=== PATIENT | female | born 1975 | race Caucasian/White ===

== ENCOUNTER → 2023-07-19 07:40 | Outpatient (REF) | payer BC, SELFPAY | LOC: RAD 07:40 | PROVIDERS: ATTENDING PHYSICIAN Specialist; FAMILY PHYSICIAN Family Medicine | DX: K80.20 Calculus of gallbladder without cholecystitis without obstruction (principal); Q44.6 Cystic disease of liver | CPT/HCPCS: 78226; A9537 ==

== ENCOUNTER 2024-10-04 10:56 | Emergency (ER) | payer BC, SELFPAY ==
[2024-10-04] VITALS (10 sets, daily range): BP systolic 97–128; BP diastolic 69–93; PULSE 71–80; BMI 29.0
[2024-10-04 11:46] LABS: % Basophils 1.1 % (0-2); % Eosinophils 0.9 % (0-6); % Immature Granulocytes 0.2 % (0-0.5); % Lymphocytes 32.9 % (20.5-51.1); % Neutrophils 58.9 % (42.2-75.2); Absolute Basophils 0.1 10^3/uL (0-0.2); Absolute Eosinophils 0.1 10^3/uL (0-0.7); Absolute Lymphocytes 1.8 10^3/uL (1.2-3.4); Absolute Monocytes 0.3 10^3/uL (0.1-0.6); Absolute Neutrophils 3.3 10^3/uL (1.4-6.5); Hematocrit 43.8 % (37.0-47.0); Hemoglobin 15.1 g/dL (12.0-16.0); Mean Corp Hgb Conc. 34.5 g/dL (33.0-37.0); Mean Corpuscular Hgb 30.9 pg (27.0-31.0); Mean Corpuscular Volume 89.8 fL (81.0-99.0); Mean Platelet Volume 10.3 fL (7.4-10.4); Nucleated Red Blood Cells % 0 %; Platelet Count 166 10^3/uL (130-400); Red Blood Cell Count 4.88 10^6/uL (4.20-5.40); White Blood Cell Count 5.5 10^3/uL (4.8-10.8)
[2024-10-04 12:16] LABS: ALT (SGPT) 16 U/L (0-35); AST (SGOT) 25 U/L (14-36); Albumin 4.8 g/dl (3.5-5.0); Alkaline Phosphatase 38 U/L (38-126); Blood Urea Nitrogen 17 mg/dl (7-17); Calcium 9.5 mg/dl (8.4-10.2); Carbon Dioxide 24 mmol/L (22-30); Chloride 111 mmol/L (98-107); Estimated Creatinine Clearance 104 ml/min; Glucose 80 mg/dl (70-99); Potassium 4.6 mmol/L (3.5-5.1); Sodium 142 mmol/L (135-145); Total Bilirubin 0.6 mg/dl (0.2-1.3); Total Protein 7.6 g/dl (6.3-8.2); eGFR > 60.00
[2024-10-04] MEDS: ANTIVERT 25 MG PO (12:32)
[2024-10-04] MEDS: NSS 1000 IV (12:33)
[2024-10-04 12:46] LABS: HCG, Serum Qualitative Screen Negative
[2024-10-04 13:14] LABS: COVID-19 Antigen Negative (Negative)
[2024-10-04 13:30] LABS: Monotest Negative (Negative)
[2024-10-04] MEDS: TORADOL 15 MG IV (13:34)
--- NOTE | 2024-10-04 13:36 | ED.GENMED ---
History of Present Illness
General
Chief Complaint: Dizziness
Source: patient
Exam Limitations: none
Time Seen by Provider: 10/04/24 11:54
Nursing documentation reviewed up to this point in time: agreed with
History of Present Illness
History of Present Illness:
Patient is a 48-year-old female with history of migraines who present to the emergency department for evaluation of dizziness beginning abruptly yesterday while standing and talking. The dizziness is described as a lightheaded feeling, without a
spinning sensation like vertigo. Efforts to alleviate symptoms, including eating, hydrating, and taking meclizine 25 mg and sumatriptan, were ineffective.
Symptoms clearly worsened with movement of head or lying down; remaining upright provided some relief. This morning, she attempted to work but had to call out sick due to persistent dizziness upon head movement and felt nauseous. She reports
headache localized to the forehead and neck, alongside chronic neck and shoulder pain. The headache resembles her typical headaches, usually relieved by rest and medication, but dizziness persisted this time.
No vision changes, hearing changes, fever, or recent viral symptoms are noted.
Recent related symptoms include 2-month long intermittent waking-related tingling in both arms, which she is awaiting cervical spine MRI for evaluation, suspecting no significant findings.
Past History
Past History
ED Past Surgical History: and Other
Social History
Tobacco: Other
Drug: None
Personal:
Living: with family
Employment: Employed
Review of Systems
Review of Systems
Allergies reviewed?: Yes
All Other Systems: ROS reviewed and negative except as documented in HPI and ROS
Phy Exam
Physical Exam
Physical Exam:
Vitals: Patient's vital signs are stable. Afebrile
General: Patient is well appearing, no acute distress
Skin: Warm and dry, no rashes or lesions
Head: Normocephalic, atraumatic
Eyes: Sclera nonicteric. Pupils equal round and reactive to light bilaterally. EOMs intact. No nystagmus.
Throat: Protecting airway
Neck: Normal ROM, no cervical spine tenderness, no meningismus
Cardiac: Regular rate and rhythm, no murmurs.
Pulm: Normal respiratory effort, no wheezes, rales, rhonchi heard on exam
.
Abdomen: Abdomen soft and nontender
Extremities: No evidence of cyanosis or edema. Palpable DP pulses bilaterally. Strength equal bilaterally
Neuro: AAOx3. CN II-XII grossly intact on examination. Normal yadayz-ax-eusu. Fluid speech. No facial droop or asymmetry. Steady gait. No focal neurologic deficits.
Psychiatric: Normal affect.
Course
Orders/Labs/Results
Orders:
Orders
10/04/24 11:30
CMP [Comprehensive Metabolic Panel] Urgent
Complete Blood Count/With Diff Urgent
HCG, Serum Qualitative Screen Urgent
Comment: ADD
Monotest Urgent
Comment: ADD
10/04/24 11:33
EKG [Electrocardiogram (*1)] Urgent
Reason for Study: Vertigo / Dizzy
EKG- Treatment ONCE
10/04/24 12:16
Add On- LAB Urgent
Tests Added?: serum hcg, monospot
Orthostatic VS- Treatment ONCE
0.9% Sodium Chloride 1000 ml [Nss] 1,000 ml IV BOLUS
Meclizine [Antivert] 25 mg PO NOW STA
10/04/24 12:17
CT Head W/o Iv Contrast Urgent
Comment:
Reason For Exam: Dizziness, b/l arm tingling
10/04/24 12:41
COVID-19 Antigen Urgent
Source: Nasal Swab
Influenza A+B Rapid Molecular Urgent
ANAHY Source: Nasal Swab
Specimen Description:
10/04/24 13:27
Ketorolac [Toradol] 15 mg IV NOW STA
PT Consult [Pt Eval And Treat] Urgent
Treatment: vestibular therapy
Activity Level: As Tolerated
10/04/24 14:53
Diphenhydramine [Benadryl] 25 mg IV NOW STA
Metoclopramide [Reglan] 10 mg IV NOW STA
Abnormal Lab Results
10/04/24
11:30
Chloride 111 H mmol/L
(98-107)
10/04/24 11:30
10/04/24 11:30
Vital Signs
Initial and Last Documented VS:
Initial Vital Signs
Temp Pulse Resp BP Pulse Ox
98.2 F 84 20 118/84 99
10/04/24 11:08 10/04/24 11:08 10/04/24 11:08 10/04/24 11:08 10/04/24 11:08
Last Documented Vital Signs
Temp Pulse Resp BP Pulse Ox
98.2 F 81 22 104/78 100
10/04/24 11:08 10/04/24 16:15 10/04/24 16:15 10/04/24 16:40 10/04/24 16:27
MDM/Problems Addressed
Differential Diagnosis Includes:
Not limited to: BPPV, labyrinth-itis, vestibular neuritis, vestibular migraine, orthostatic hypotension, acute dehydration, viral illness, cervical spine pathology, etc.
MDM/Problems Addressed:
A 48-year-old female presented with dizziness and mild headaches since the previous day. Her symptoms were exacerbated by head movements. No history of ataxia, diplopia, dysarthria, or dysmetria was noted. No history of recent trauma. Patient has
stable vital signs. Physical exam as above. Symptoms seem most consistent with likely peripheral vertigo. ED plan check labs, viral studies, EKG, orthostatic vital signs. Will treat with meclizine and IV fluids. Given new onset as well as
associated headache and intermittent arm tingling�will obtain CT head.
Update: Labs reviewed. CBC and Chemistry without clinically significant abnormalities. Viral studies negative. EKG reveals normal sinus rhythm without acute ischemic changes. Head CT without acute intracranial abnormalities. Patient reports
possibly mild improvement in symptoms following meclizine however still has headache. Will treat with migraine cocktail. Plan for PT evaluation.
Update: PT down to evaluate patient at bedside who feels most consistent peripheral vertigo as they were able to reproduce symptoms bilaterally. Headache improved following migraine cocktail. She still has some mild vertiginous symptoms�much
improved from arrival to emergency department. She does not want any Valium or additional dose of meclizine here. Presentation was consistent with peripheral vertigo today�very low suspicion for central cause. Offered admission for continued
management although patient feels she can handle the symptoms at home. She was able to ambulate around department with steady gait and minimal symptoms. Will send prescription for meclizine and order form given to patient for outpatient vestibular
therapy. Strict return precautions discussed. Patient comfortable with plan.
Chronic conditions affecting care:
Migraines
Acute Exacerbation and/or Progression of Chronic Illness:
N/A
*Radiology
Radiology exam reviewed: preliminary read by ED provider (CT head reviewed by me-no acute abnormalities) and radiology read reviewed
*Pulse Oximetry
SaO2: 100
Oxygen Mode of Delivery: Room air
Patient hypoxic: no
*EKG
Interpreted by ED Provider?: Yes
EKG Intrepretation Date: 10/04/24
Interpretation: normal
Comparison EKG: no comparison EKG present
Heart Rate: 77
Rate: normal
Rhythm: sinus
[place]: normal axis
Interval: normal interval
QRS Pattern: normal QRS
Ischemia: no ischemia
*Braze Operator Interpretation
Rate: normal
Interpretation: normal
Heart Rate: 80
Rhythm: sinus
*Critical Care Note
Total Time (30-74mins, 75-104mins- exclusive of procedures): Not Applicable
Patient Management
Escalation/DeEscalation of care consider admission/obs:
Considered/offered admission for persistent dizziness however patient declines and feels comfortable monitoring symptoms at home and treating symptomatically
ED Attending Note
-
Portions of this chart may have been created with voice recognition software.� Occasional wrong word or��sound alike� substitutions may have occurred due to the inherent limitations of voice recognition software.
Discharge Plan
Departure
Patient Disposition: Home (Routine Discharge)
Date of Disposition: 10/04/24
Time of Disposition: 16:00
Patient with high blood pressure during this ER visit?: No
Condition: Good
Covid-19: Negative COVID-19
Discharge Problem:
Dizziness, Headache
Instructions: Vertigo (a Type of Dizziness) (DC), Headache in adults - ED discharge instructions
Prescriptions:
New
meclizine 25 mg tablet
25 mg PO TID PRN (Reason: dizziness) Qty: 10 0RF
Referrals:
Ophelia Galeano DO [Family Provider, [facility]] - Follow up in 2-3 days
Activity Restrictions/Additional Instructions:
RETURN TO THE EMERGENCY DEPARTMENT ANY SEVERE HEADACHE, NECK PAIN, INTRACTABLE DIZZINESS, FEVERS, CHANGES IN VISION OR OTHER NEUROLOGIC SYMPTOMS, VOMITING, WORSENING IN CURRENT SYMPTOMS, OR ANY OTHER CONCERNS
- As discussed�your lab work and head CT showed no acute abnormalities. Your viral testing was negative. You were given IV fluids, oral meclizine, IV Toradol, Benadryl, Reglan while in the emergency department.
- I suspect you likely are experiencing some degree of peripheral vertigo contributing to your symptoms. It is possible that you have an underlying viral illness, as well.
- It is important stay very well-hydrated. You can take meclizine as needed for persistent dizziness. You should follow-up for outpatient vestibular therapy. The order form has been sent home with you.
-Please follow-up with your primary care in a few days to ensure that symptoms are improving/for further evaluation. If symptoms persist/worsen you may need MRI imaging
Monitor your symptoms closely and return to the emergency department with any acute worsening/new symptoms or any other concerns
Interventions
Interventions:
*Risk Screen - Suicide Last Done: 10/04/24 11:08
*General Assessment Last Done: 10/04/24 11:21
*Neglect/Abuse Screening Last Done: 10/04/24 11:08
*ED- Fall Risk Assessment Last Done: 10/04/24 11:21
*ED COVID-19 Vaccine History Last Done: 10/04/24 11:21
*Nursing Disposition Last Done: 10/04/24 16:49
ED- Neurological Assessment Last Done: 10/04/24 11:21
ED- Cardiac Assessment Last Done: 10/04/24 16:49
ED Swallowing Screen Last Done: 10/04/24 11:21
Discharge Date and Time
Discharge Date/Time: 10/04/24 16:52
Print Language: EAST [place]
[2024-10-04] MEDS: REGLAN 10 MG IV (14:56)
[2024-10-04] MEDS: BENADRYL 25 MG IV (14:57)
== END 2024-10-04 16:52 | disposition home or self-care (01) ==
LOC: EMR 10:56
PROVIDERS: Emergency Medicine; Physician Assistant; EMERGENCY PHYSICIAN Emergency Medicine; FAMILY PHYSICIAN Family Medicine
DX: R42 Dizziness and giddiness (principal); R51.9 Headache, unspecified; Z11.52 Encounter for screening for COVID-19
CPT/HCPCS: 99285; 96374; 96375 ×2; 96361; 70450; 80053; 84703; 85025; 86308; 87502; 87811; 93005

== ENCOUNTER 2025-03-13 02:54 | Emergency (ER) | payer BC, SELFPAY ==
[2025-03-13 03:14] VITALS: BP 114/78
[2025-03-13 03:40] VITALS: BMI 28.3
[2025-03-13 03:53] VITALS: BP 113/83
[2025-03-13 04:07] LABS: Hematocrit 40.9 % (37.0-47.0); Hemoglobin 14.3 g/dL (12.0-16.0); Mean Corp Hgb Conc. 35.0 g/dL (33.0-37.0); Mean Corpuscular Volume 88.7 fL (81.0-99.0); Nucleated Red Blood Cells % 0 %; Platelet Count 176 10^3/uL (130-400); Red Cell Dist. Width 12.0 % (11.5-14.5)
[2025-03-13] MEDS: ZOFRAN 4 MG IV (04:09)
[2025-03-13] MEDS: NSS 1000 IV (04:12)
[2025-03-13 04:16] LABS: HCG, Serum Qualitative Screen Negative
[2025-03-13 04:19] LABS: Urine Character Clear (Clear)
[2025-03-13] MEDS: DILAUDID 0.25 MG IV (04:24)
[2025-03-13 04:25] LABS: ALT (SGPT) 20 U/L (0-35); AST (SGOT) 26 U/L (14-36); Albumin 4.7 g/dl (3.5-5.0); Alkaline Phosphatase 43 U/L (38-126); Blood Urea Nitrogen 14 mg/dl (7-17); Calcium 9.6 mg/dl (8.4-10.2); Carbon Dioxide 23 mmol/L (22-30); Chloride 109 mmol/L (98-107); Estimated Creatinine Clearance 102 ml/min; Glucose 83 mg/dl (70-99); Lipase 169 U/L (23-300); Potassium 3.9 mmol/L (3.5-5.1); Sodium 139 mmol/L (135-145); Total Protein 7.3 g/dl (6.3-8.2); eGFR > 60.00
--- NOTE | 2025-03-13 05:46 | ED.GENMED ---
History of Present Illness
<Jerri Moctezuma PA-C - Last Filed: 03/14/25 07:06>
General
Chief Complaint: Flank Pain
Time Seen by Provider: 03/13/25 03:41
History of Present Illness
History of Present Illness:
see MDM
Past History
<Jerri Moctezuma PA-C - Last Filed: 03/14/25 07:06>
Past History
ED Past Surgical History: and Other
Social History
Tobacco: Other
Drug: None
Personal:
Living: with family
Employment: Employed
Phy Exam
<REYES Sutton Last Filed: 03/14/25 07:06>
Physical Exam
Physical Exam:
see MDM
Course
<Jerri Moctezuma PA-C - Last Filed: 03/14/25 07:06>
Orders/Labs/Results
Orders:
Orders
03/13/25 03:22
Test Result ONCE
03/13/25 03:52
Complete Blood Count/With Diff Urgent
Comprehensive Metabolic Panel Urgent
HCG, Serum Qualitative Screen Urgent
Lipase Urgent
03/13/25 03:59
0.9% Sodium Chloride 1000 ml [Nss] 1,000 ml IV BOLUS
HYDROmorphone [Dilaudid] 0.25 mg IV NOW STA
Ondansetron Injectable [Zofran] 4 mg IV NOW STA
03/13/25 04:13
Urinalysis Reflex To Culture Urgent
Date Specimen was Collected: 03/13/25
Time Specimen was Collected: 03:22
03/13/25 04:17
US Abdomen Complete/Upper Urgent
Comment:
Reason For Exam: RUQ PAIN, h/o PCLD, gallstones
03/13/25 05:45
CT Abd/Pel (IV only)-DH only Urgent
Comment:
Reason For Exam: RUQ pain, severe liver dz;
Ketorolac [Toradol] 30 mg IV NOW STA
Abnormal Lab Results
03/13/25
03:52
Chloride 109 H mmol/L
(98-107)
03/13/25 03:52
03/13/25 03:52
Vital Signs
Initial and Last Documented VS:
Initial Vital Signs
Temp Pulse Resp BP Pulse Ox
36.4 C 79 16 114/78 98
03/13/25 03:14 03/13/25 03:14 03/13/25 03:14 03/13/25 03:14 03/13/25 03:14
Last Documented Vital Signs
Temp Pulse Resp BP Pulse Ox
36.4 C 74 16 94/78 98
03/13/25 03:14 03/13/25 07:41 03/13/25 07:41 03/13/25 07:32 03/13/25 07:32
<Darin Henderson, DO - Last Filed: 03/13/25 07:34>
Orders/Labs/Results
Orders:
Orders
03/13/25 03:22
Test Result ONCE
03/13/25 03:52
Complete Blood Count/With Diff Urgent
Comprehensive Metabolic Panel Urgent
HCG, Serum Qualitative Screen Urgent
Lipase Urgent
03/13/25 03:59
0.9% Sodium Chloride 1000 ml [Nss] 1,000 ml IV BOLUS
HYDROmorphone [Dilaudid] 0.25 mg IV NOW STA
Ondansetron Injectable [Zofran] 4 mg IV NOW STA
03/13/25 04:13
Urinalysis Reflex To Culture Urgent
Date Specimen was Collected: 03/13/25
Time Specimen was Collected: 03:22
03/13/25 04:17
US Abdomen Complete/Upper Urgent
Comment:
Reason For Exam: RUQ PAIN, h/o PCLD, gallstones
03/13/25 05:45
CT Abd/Pel (IV only)-DH only Urgent
Comment:
Reason For Exam: RUQ pain, severe liver dz;
Ketorolac [Toradol] 30 mg IV NOW STA
Abnormal Lab Results
03/13/25
03:52
Chloride 109 H mmol/L
(98-107)
03/13/25 03:52
03/13/25 03:52
Vital Signs
Initial and Last Documented VS:
Initial Vital Signs
Temp Pulse Resp BP Pulse Ox
36.4 C 79 16 114/78 98
03/13/25 03:14 03/13/25 03:14 03/13/25 03:14 03/13/25 03:14 03/13/25 03:14
Last Documented Vital Signs
Temp Pulse Resp BP Pulse Ox
36.4 C 74 16 94/78 98
03/13/25 03:14 03/13/25 07:41 03/13/25 07:41 03/13/25 07:32 03/13/25 07:32
<Jerri Moctezuma PA-C - Last Filed: 03/14/25 07:06>
MDM/Problems Addressed
Differential Diagnosis Includes:
see MDM
MDM/Problems Addressed:
Note:
CHIEF COMPLAINT(S)
Lower abdominal pain.
HISTORY OF PRESENT ILLNESS
The patient is a 49-year-old female with a history of gallstones presenting with severe upper abdominal pain that began last night. She described the pain as an 8 out of 10 on the pain scale when she is at rest, worsening with movement, and reported
that it is slightly relieved by standing. She noted no history of kidney stones but has had gallstones diagnosed approximately two years ago, with a past incident of gallstone-related symptoms requiring emergency evaluation.
The patient experienced similar episodes leading to two incidents of vomiting. The location of the current pain differs from previous episodes of gallbladder-related abdominal pain and is lower than typical gallbladder pain.
She takes Ursodiol for gallstones and strives for dietary modifications to manage her condition. Recent imaging, typically an annual MRI, has shown stable liver function with gallstones present but no worsening. She mentioned a prior ruptured cyst
and her liver surgeon has indicated potential complexity if surgical intervention is needed due to anatomical positioning of the gallbladder and liver.
The patient reported no cough, nausea, or recent travel over six hours. She experienced vertigo and migraine episodes after a recent COVID vaccine but attributes those symptoms to her history of migraines.
PAST MEDICAL AND SURIGICAL HISTORY
- Gallstones
- Two liver surgeries
- Bilateral mastectomy with reconstruction
- Oophorectomy and caesarean section
- Corneal surgery
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
The patient reports significant sensitivity to certain narcotic pain medications, which cause severe nausea and vomiting unless accompanied by a Scopolamine patch.
MEDICATIONS
- Ursodiol for gallstones
PHYSICAL EXAM
- Nursing notes reviewed and vital signs reviewed.
GENERAL: Alert , in no apparent distress uncomfortable with movement
EYE: pupils equal and reactive
NECK: Supple
ENT: o/p clr, mmm.
CARDIAC: Regular rate and rhythm .
LUNGS: Clear breath sounds bilaterally, no acute respiratory distress, no wheezes/rales/rhonchi, pain with deep breathing
ABDOMEN: Soft, moderate right upper quadrant tenderness, positive Gil sign, no r/g, no cvat, normal bowel sounds
NEUROLOGICAL: Alert and oriented, no focal neuro deficits
SKIN: Warm and dry, skin intact.
MUSCULOSKELETAL: No edema, well perfused. neg guzman's sign
PSYCH: Normal and appropriate interaction.
PROBLEM LIST
Acute problems: Severe lower abdominal pain, likely related to gallstones or other intra-abdominal pathology.
PLAN
- The plan includes the administration of intravenous pain medications, specifically Dilaudid at a low dose with Zofran to prevent nausea.
- Initiate workup including bloodwork and urine tests to explore potential causes of pain.
- Perform diagnostic ultrasound and possibly CT scan to identify gallstones, kidney stones, or other abdominal issues.
- Patient to refrain from ingesting food or drink until the testing identifies the appropriate course of management.
DIFFERENTIAL DIAGNOSIS
The Differential Diagnosis includes, in no particular order and is not limited to:
- Gallstones
- Kidney stones
- Liver disease or cysts
- Peptic ulcer disease
- Pancreatitis
- Appendicitis
- Ovarian cyst rupture
- Gastroenteritis
- Urinary tract infection
- Biliary colic
CARE-UPDATE
03/13/25 - 05:44
Patient reports continued abdominal pain. Ultrasound reveals severe polycystic liver disease and probable gallstones, but no cholecystitis or kidney issues. Labs including liver markers, lipase, and kidney function are normal. Discussion with
attending suggests stopping further testing if the patient feels better, as no acute cholecystitis is indicated. CT scan considered if pain persists to rule out other causes. Patient encouraged to eat and assess pain response to determine if
gallstones are symptomatic. If gallbladder surgery becomes necessary, transfer to [place] is recommended. Motrin taken at 2 a.m., with additional pain management planned using tylenol, as it may help with pain without causing drowsiness.
signed out to dr. henderson pending CT.
<Jerri Moctezuma PA-C - Last Filed: 03/14/25 07:06>
*Pulse Oximetry
SaO2: 100
Oxygen Mode of Delivery: Room air
Patient hypoxic: no (98)
*Critical Care Note
Total Time (30-74mins, 75-104mins- exclusive of procedures): Not Applicable
ED Attending Note
<Jerri Moctezuma PA-C - Last Filed: 03/14/25 07:06>
-
Portions of this chart may have been created with voice recognition software.� Occasional wrong word or��sound alike� substitutions may have occurred due to the inherent limitations of voice recognition software.
<Darin Henderson, DO - Last Filed: 03/13/25 07:34>
ED Attending Note
Patient seen and examined by attending physician: Yes
I performed the substantive portion of visit, reviewed & personally made and approve the management plan that is documented in note by myself or JOSEPHINE.: Yes
ED Attending Note:
I have seen and evaluated the patient with a [id number] encounter. I have spoken to the advance practicer provider and involved in the medical history, the physical exam, medical decision making.
Evaluation and management service: agree unless noted differently below.
Results interpretation: agree unless noted differently below.
Focused HPI: 49-year-old female presenting for evaluation of right abdominal pain. Patient has a history of polycystic liver disease. She was unsure if this is related to her gallbladder given her history of gallstones or if this is related to a
cyst rupture
Physical exam: Patient received pain medicine on my evaluation. On my exam, patient in no acute distress
Medical Decision Making: CT shows severe polycystic liver disease. There is a concern for possible hemorrhage in one of the cyst. I did curbside the general surgeon who recommended no intervention needed if clinically stable. Patient is stable
and she is comfortable with symptomatic care with pain medicine and nausea medicine. Discussed follow-up with doctors
Discharge Plan
Departure
Patient Disposition: Home (Routine Discharge)
Date of Disposition: 03/13/25
Time of Disposition: 07:31
Patient with high blood pressure during this ER visit?: No
Discharge Problem:
Cystic disease of liver
Prescriptions:
New
oxycodone 5 mg tablet
5 mg PO Q8H PRN (Reason: Pain) Qty: 14 0RF
scopolamine base [Transderm-Scop] 1 mg over 3 days patch 3 day
1 patch transdermal Q3D PRN (Reason: nausea) Qty: 4 0RF
No Action
meclizine 25 mg tablet
25 mg PO TID PRN (Reason: dizziness) Qty: 10 0RF
Referrals:
Ophelia Galeano DO [Family Provider, Family Practice]
Activity Restrictions/Additional Instructions:
Please return for any worsening symptoms.
You may return at any time if you have further concerns.
Please follow up with your doctor at the first available appointment, preferably this week.
Interventions
Interventions:
*Risk Screen - Suicide Last Done: 03/13/25 03:14
*General Assessment Last Done: 03/13/25 03:40
*Neglect/Abuse Screening Last Done: 03/13/25 03:14
*ED- Fall Risk Assessment Last Done: 03/13/25 03:14
*ED COVID-19 Vaccine History Last Done: 03/13/25 03:14
*ED Influenza Vaccine History Last Done: 03/13/25 03:14
*Nursing Disposition Last Done: 03/13/25 07:40
FQ-Nwyzqe-Ovirdirycm Assessment Last Done: 03/13/25 03:40
ED-Female Genitourinary Assessment Last Done: 03/13/25 03:40
Discharge Date and Time
Discharge Date/Time: 03/13/25 07:40
Print Language: DANISH
[2025-03-13] MEDS: TORADOL 30 MG IV (05:52)
[2025-03-13 06:29] VITALS: BP 102/70
[2025-03-13 07:32] VITALS: BP 94/78
== END 2025-03-13 07:40 | disposition home or self-care (01) ==
LOC: EMR 02:54
PROVIDERS: Emergency Medicine; EMERGENCY PHYSICIAN Student in an Organized Health Care Education/Training Program; FAMILY PHYSICIAN Family Medicine
DX: K76.89 Other specified diseases of liver (principal); Z90.13 Acquired absence of bilateral breasts and nipples; Z90.721 Acquired absence of ovaries, unilateral; Z98.891 History of uterine scar from previous surgery
CPT/HCPCS: 99284; 96374; 96375; 96361; 74177; 76700; 80053; 81003; 83690; 84703; 85025; Q9967